=== PATIENT | female | born 1960 | race Caucasian/White ===

== ENCOUNTER → 2023-12-04 13:31 | Outpatient (REF) | payer OTHER, SELFPAY | LOC: HWWDC 13:31 | PROVIDERS: ATTENDING PHYSICIAN Family Medicine | DX: Z12.31 Encounter for screening mammogram for malignant neoplasm of breast (principal) | CPT/HCPCS: 77063; 77067 ==

== ENCOUNTER → 2024-04-02 07:45 | Outpatient (REF) | payer SELFPAY | LOC: HWRAD 07:45 | PROVIDERS: ATTENDING PHYSICIAN Family Medicine | DX: E78.5 Hyperlipidemia, unspecified (principal) | CPT/HCPCS: 75571 ==

== ENCOUNTER → 2024-09-15 08:46 | Outpatient (REF) | payer OTHER, SELFPAY | LOC: RAD 08:46 | PROVIDERS: ATTENDING PHYSICIAN Family Medicine | DX: R13.19 Other dysphagia (principal) | CPT/HCPCS: 74221 ==

== ENCOUNTER → 2024-10-31 07:34 | Outpatient (REF) | payer OTHER, SELFPAY | LOC: HWRCS 07:34 | PROVIDERS: ATTENDING PHYSICIAN Internal Medicine Cardiovascular Disease; FAMILY PHYSICIAN Family Medicine | DX: I10 Essential (primary) hypertension (principal); R94.31 Abnormal electrocardiogram [ECG] [EKG] | CPT/HCPCS: 93306 ==

== ENCOUNTER → 2024-11-19 07:44 | Outpatient (REF) | payer OTHER, SELFPAY | LOC: HWWDC 07:44 | PROVIDERS: ATTENDING PHYSICIAN Family Medicine | DX: Z12.31 Encounter for screening mammogram for malignant neoplasm of breast (principal) | CPT/HCPCS: 77063; 77067 ==